=== PATIENT | female | born 1935 | race Caucasian/White ===

== ENCOUNTER 2017-09-01 11:25 | Emergency (ER) | payer BC, MEDICARE ==
[~2017-09-01 11:25] MED LIST: AMOX1TAB61 PO; CELE-20 PO; DONE5TAB7 PO; MIRT30TA3 PO; TROS20TA2 PO
[2017-09-01 12:00] VITALS: BP 159/59
[2017-09-01] MEDS ORDERED: HYDROcodone/APAP 5/325MG 1 TAB TABLET PO ONE (12:15)
--- NOTE | 2017-09-01 12:22 | PHYS DOC ---
Past Medical History Past Medical History: Dementia Additional Past Medical Histor: pt denies medical hx. poor historian Past Surgical History: Other Additional Past Surgical Histo: knee Alcohol Use: None Drug Use: None Adult General Chief Complaint Chief Complaint: HIP PAIN HPI HPI Patient is a 82 year old female with a history of dementia presents to the ED complaining of hip pain x 1 day. States the pain is in her left hip. States the pain is worse with walking. States she may have injured it standing up after going to the bathroom. Describes as sharp. Rates the pain as 7/10. States she has not taken anything for pain at home. Patient able to ambulate without assistance. Denies fall, fever, n/v, abdominal pain, laceration, chest pain, shortness of breath, dizziness or weakness. Her son at bedside provides the history. Review of Systems Review of Systems Constitutional: Denies fever or chills [] Eyes: Denies change in visual acuity, redness, or eye pain [] HENT: Denies nasal congestion or sore throat [] Respiratory: Denies cough or shortness of breath [] Cardiovascular: No additional information not addressed in HPI [] GI: Denies abdominal pain, nausea, vomiting, bloody stools or diarrhea [] : Denies dysuria or hematuria [] Musculoskeletal: Denies back pain. Complains of hip pain.[] Integument: Denies rash or skin lesions [] Neurologic: Denies headache, focal weakness or sensory changes [] Endocrine: Denies polyuria or polydipsia [] All other systems were reviewed and found to be within normal limits, except as documented in this note. Current Medications Current Medications Current Medications Medications (Trade) Dose Ordered Sig/Jeannette Start Time Stop Time Status Last Admin Dose Admin Acetaminophen/ Hydrocodone Bitart (Lortab 5/325) 1 tab 1X ONCE 09/01/17 12:15 09/01/17 12:16 DC 09/01/17 12:18 1 TAB Allergies Allergies Allergies Coded Allergies Type Severity Reaction Last Updated Verified No Known Drug Allergies 09/10/16 No Physical Exam Physical Exam Constitutional: Well developed, well nourished, no acute distress, non-toxic appearance. [] HENT: Normocephalic, atraumatic, oropharynx moist Eyes: PERRLA, EOMI, conjunctiva normal, no discharge. [] Neck: Normal range of motion, no tenderness, supple, no stridor. [] Cardiovascular:Heart rate regular rhythm, no murmur [] Lungs & Thorax: Bilateral breath sounds clear to auscultation [] Abdomen: Bowel sounds normal, soft, no tenderness, no masses, no pulsatile masses. [] Skin: Warm, dry, no erythema, no rash. [] Back: No tenderness, no CVA tenderness. [] Extremities: MILD LEFT HIP TENDERNESS. NO SWELLING OR OVERLYING SKIN CHANGES., no cyanosis, no clubbing, ROM intact, no edema. [] Neurologic: Alert and oriented X 3, normal motor function, normal sensory function, no focal deficits noted. [] Psychologic: Affect normal, judgement normal, mood normal. [] Current Patient Data Vital Signs Vital Signs Date Time Temp Pulse Resp B/P (MAP) Pulse Ox O2 Delivery O2 Flow Rate FiO2 09/01/17 12:00 98.0 62 18 98 Room Air 98.0 EKG EKG [] Radiology/Procedures Radiology/Procedures PROCEDURE: HIP LEFT 2V WITH PELVIS Left hip 2 views with one view pelvis. History: Left hip pain Single view was taken of the pelvis. The pelvis is intact without acute osseous abnormality. There is degenerative disc disease and hypertrophic change with scoliosis in the lower lumbar spine. AP and lateral views of the left hip show mild joint space narrowing. There is slight spurring on the femoral head. The pattern is consistent with a mild arthritis. Impression: 1. Mild arthritis left hip. 2. Degenerative change in the lumbar spine. [] Course & Med Decision Making Course & Med Decision Making Pertinent Labs and Imaging studies reviewed. (See chart for details) []Discussed imaging findings with patient. Patient's pain improved. Patient able to ambulate without assistance. Patient lives at home with her son. States she is feeling much better. Will discharge with analgesics. Discussed follow-up with orthopedics early this next week. Discussed reasons to return to the ED. Patient and family understand and agree with plan. Joe Disclaimer Svenon Disclaimer This electronic medical record was generated, in whole or in part, using a voice recognition dictation system. Departure Departure Impression: Primary Impression: Hip pain Additional Impression: Arthritis Disposition: 01 HOME, SELF-CARE Condition: IMPROVED Referrals: ELINOR STEVENS MD (PCP) NE GRANT MD Patient Instructions: Arthritis, Nonspecific, Hip Pain Scripts Hydrocodone/Apap 5-325 (NORCO 5-325 TABLET) 1 Each Tablet 1 TAB PO BID, #10 TAB Prov: MARK NOVA 09/01/17 Problem Qualifiers MARK NOVA Sep 01, 2017 12:22
--- NOTE | 2017-09-01 12:50 | RAD ---
Left hip 2 views with one view pelvis. History: Left hip pain Single view was taken of the pelvis. The pelvis is intact without acute osseous abnormality. There is degenerative disc disease and hypertrophic change with scoliosis in the lower lumbar spine. AP and lateral views of the left hip show mild joint space narrowing. There is slight spurring on the femoral head. The pattern is consistent with a mild arthritis. Impression: 1. Mild arthritis left hip. 2. Degenerative change in the lumbar spine.
[2017-09-01] MEDS ORDERED: HYDR-971 PO (13:00)
== END 2017-09-01 13:16 | disposition home or self-care (01) ==
LOC: ER 11:25
DX: M16.12 Unilateral primary osteoarthritis, left hip (principal); F03.90 Unspecified dementia, unspecified severity, without behavioral disturbance, psychotic disturbance, mood disturbance, and anxiety
CPT/HCPCS: 73502; 99284

== ENCOUNTER → 2017-10-24 | Outpatient (CLI) | payer BC ==
[2017-10-24] MEDS: IOHEXOL 300 MG/ML 100ML VIAL. IV ×2 (13:31)
[2017-10-24 13:49] LABS: ISTAT CREATININE 1.3 mg/dL (0.6-1.1)
== END | disposition home or self-care (01) ==
LOC: KCIC CT 12:50
DX: K11.5 Sialolithiasis (principal); M26.89 Other dentofacial anomalies; E04.1 Nontoxic single thyroid nodule
CPT/HCPCS: 70491; 82565; Q9967

== ENCOUNTER → 2017-11-11 | Day surgery (SDC) | payer BC ==
[~2017-11-11] MED LIST changes: -AMOX1TAB61 PO; -CELE-20 PO; +DEXAMETHASONE SOD PHOS 20 MG/5 ML VIAL.; -DONE5TAB7 PO; +EPINEPHrine VIAL 30 MG/30 ML VIAL; +HYDROmorphone 2 MG/ML VIAL IV; +LIDOCAINE 1% PF 2 ML VIAL. ID; +LIDOCAINE 1%/EPI 1:100,000 20 ML VIAL.; +LIDOCAINE 2% PF Vial for OR 5 ML VIAL.; -MIRT30TA3 PO; +MORPHINE SULFATE 2 MG/ML DISP.SYRIN. IV; +ONDANSETRON PF 4 MG/2 ML VIAL.; +ONDANSETRON PF 4 MG/2 ML VIAL. IV; +PROCHLORPERAZINE 10 MG/2 ML VIAL. IV; +PROPOFOL 0 ML IV; +SEVOFLURANE > 120 MINUTES. IH; +SUCCINYLCHOLINE 200 MG/10 ML VIAL.; -TROS20TA2 PO; +fentaNYL PF VIAL 100 MCG/2 ML VIAL; +fentaNYL PF VIAL 100 MCG/2 ML VIAL IV
[2017-11-11] MEDS: IV RINGERS,LACTATED 1000ML 1,000 ML IV (13:43)
== END ==
LOC: SURG 12:47
DX: R53.83 Other fatigue (principal); Z53.8 Procedure and treatment not carried out for other reasons
CPT/HCPCS: J0171; J0330; J0690; J1100; J2405; J2704; J3010; J3490

== ENCOUNTER 2020-09-24 16:57 | Emergency (ER) | payer BC ==
[~2020-09-24] VITALS: Ht 167.6 cm; Wt 120.0 kg
[~2020-09-24 16:57] MED LIST changes: +AMOX1TAB61 PO; +CALC-627 PO; +CELE-20 PO; -DEXAMETHASONE SOD PHOS 20 MG/5 ML VIAL.; +DONE5TAB7 PO; -EPINEPHrine VIAL 30 MG/30 ML VIAL; +ERGO500027 PO; +HYDR-3164 PO; -HYDROmorphone 2 MG/ML VIAL IV; +LACT20SO PO; -LIDOCAINE 1% PF 2 ML VIAL. ID; -LIDOCAINE 1%/EPI 1:100,000 20 ML VIAL.; -LIDOCAINE 2% PF Vial for OR 5 ML VIAL.; +MEMA10TA PO; +MIRT-8 PO; -MORPHINE SULFATE 2 MG/ML DISP.SYRIN. IV; -ONDANSETRON PF 4 MG/2 ML VIAL.; -ONDANSETRON PF 4 MG/2 ML VIAL. IV; +OXYB10TA26 PO; -PROCHLORPERAZINE 10 MG/2 ML VIAL. IV; -PROPOFOL 0 ML IV; +PSYL3.4P PO; +QUET25TA5 PO; -SEVOFLURANE > 120 MINUTES. IH; -SUCCINYLCHOLINE 200 MG/10 ML VIAL.; +TROS20TA2 PO; -fentaNYL PF VIAL 100 MCG/2 ML VIAL; -fentaNYL PF VIAL 100 MCG/2 ML VIAL IV
[2020-09-24 21:18] LABS: BASO # 0.1 x10^3/uL (0.0-0.2); BASO % 1 % (0-3); EOS # 0.5 x10^3/uL (0.0-0.7); EOS % 7 % (0-3); HEMATOCRIT 41.9 % (36.0-47.0); LYMPH % 27 % (24-48); MEAN CORPUSCULAR HEMOGLOBIN 31 pg (25-35); MEAN CORPUSCULAR HGB CONC 34 g/dL (31-37); MEAN CORPUSCULAR VOLUME 94 fL (79-100); MONO # 0.5 x10^3/uL (0.0-1.1); MONO % 6 % (0-9); NEUT # 4.5 x10^3/uL (1.8-7.7); NEUT % 60 % (31-73); PLATELET COUNT 159 x10^3/uL (140-400); RED BLOOD COUNT 4.49 x10^6/uL (3.50-5.40); RED CELL DISTRIBUTION WIDTH 13.9 % (11.5-14.5); WHITE BLOOD COUNT 7.6 x10^3/uL (4.0-11.0)
--- NOTE | 2020-09-24 21:19 | PHYS DOC ---
Past Medical History Past Medical History: Constipation, COPD, Dementia Additional Past Medical Histor: pt denies medical hx. poor historian Past Surgical History: Knee Replacement, Tonsillectomy, Other Additional Past Surgical Histo: SALIVARY GLAND Smoking Status: Former Smoker Alcohol Use: None Drug Use: None General Adult EDM: Chief Complaint: CONSTIPATION HPI: HPI: Patient is a 85 year old female past medical history dementia presents for evaluation of back pain. History obtained from the patient and her daught er-in-law. Patient does have a history of dementia. Daughter states patient has been been complaining of bilateral lower back pain for approximately 1 week. [id number] states pain primarily after attempting to have a bowel movement. [id number] states 1 year ago similar symptoms. Patient is alert but confused-- baseline. She ambulated into her ER room with a normal gait. Review of Systems: Review of Systems: Constitutional: Denies fever or chills. [] Eyes: Denies change in visual acuity. [] HENT: Denies nasal congestion or sore throat. [] Respiratory: Denies cough or shortness of breath. [] Cardiovascular: Denies chest pain or edema. [] GI: Denies abdominal pain, nausea, vomiting, bloody stools or diarrhea. [Positive constipation] : Denies dysuria. [] Musculoskeletal: Denies or joint pain. [Positive back pain] Integument: Denies rash. [] Neurologic: Denies headache, focal weakness or sensory changes. [] Endocrine: Denies polyuria or polydipsia. [] Lymphatic: Denies swollen glands. [] Psychiatric: Denies depression or anxiety. [] Heart Score: Risk Factors: Risk Factors: DM, Current or recent (<one month) smoker, HTN, HLP, family history of CAD, obesity. Risk Scores: Score 0 - 3: 2.5% MACE over next 6 weeks - Discharge Home Score 4 - 6: 20.3% MACE over next 6 weeks - Admit for Clinical Observation Score 7 - 10: 72.7% MACE over next 6 weeks - Early Invasive Strategies Allergies: Allergies: Allergies Coded Allergies Type Severity Reaction Last Updated Verified No Known Drug Allergies 11/11/17 No Physical Exam: PE: Constitutional: Well developed, well nourished, no acute distress, non-toxic appearance. [] HENT: Normocephalic, atraumatic, bilateral external ears normal, oropharynx moist, no oral exudates, nose normal. [] Eyes: PERRLA, EOMI, conjunctiva normal, no discharge. [] Neck: Normal range of motion, no tenderness, supple, no stridor. [] Cardiovascular:Heart rate regular rhythm, no murmur [] Lungs & Thorax: Bilateral breath sounds clear to auscultation [] Abdomen: Bowel sounds normal, soft, no tenderness, no masses, no pulsatile masses. [] Skin: Warm, dry, no erythema, no rash. [] Back: No tenderness, no CVA tenderness. [] Extremities: No tenderness, no cyanosis, no clubbing, ROM intact, no edema. [] Neurologic: Alert and oriented X 3, normal motor function, normal sensory function, no focal deficits noted. [] Psychologic: Affect normal, judgement normal, mood normal. [] Current Patient Data: Vital Signs: Vital Signs Date Time Temp Pulse Resp B/P (MAP) Pulse Ox O2 Delivery O2 Flow Rate FiO2 09/24/20 19:02 98.8 76 14 95 Room Air 98.8 EKG: EKG: [] Radiology/Procedures: Radiology/Procedures: [] Impression: FINDINGS: Air and stool are noted throughout the colon to level the rectum in a nonobstructive bowel gas pattern. Diffuse osteopenia. No suspicious masses or calcifications. Visualized osseous structures are unremarkable. Joint spaces are well- maintained. IMPRESSION: Nonobstructive bowel gas pattern. Course & Med Decision Making: Course & Med Decision Making Pertinent Labs and Imaging studies reviewed. (See chart for details) [] Patient was evaluated for chief complaint. Work-up consisted of laboratory analysis and radiologic imaging. Air and stool throughout the colon nonobstructive bowel gas. [id number] states patient is most to be on lactulose daily but she only doses her mother every few days. Advised to continue lactulose as prescribed. Dragon Disclaimer: Dragon Disclaimer: This electronic medical record was generated, in whole or in part, using a voice recognition dictation system. Departure Departure Impression: Primary Impression: Constipation Additional Impression: Back pain Disposition: 01 DC HOME SELF CARE/HOMELESS Condition: STABLE Referrals: ELINOR STEVENS MD (PCP) Patient Instructions: Abdominal Pain, Back Pain, Adult, Constipation, Adult KELLEN MAI DO Sep 24, 2020 21:19
[2020-09-24 21:26] LABS: CALCIUM 9.7 mg/dL (8.5-10.1); CREATININE 1.3 mg/dL (0.6-1.0); GFR 38.9; POTASSIUM 4.4 mmol/L (3.5-5.1)
[2020-09-24 21:32] LABS: ALBUMIN 3.6 g/dL (3.4-5.0); ALBUMIN/GLOBULIN RATIO 1.1 (1.0-1.7); TOTAL BILIRUBIN 0.3 mg/dL (0.2-1.0); TOTAL PROTEIN 6.9 g/dL (6.4-8.2)
--- NOTE | 2020-09-24 22:13 | RAD ---
Exam: Abdomen 2 view INDICATION: Abdominal pain, constipation TECHNIQUE: Upright and supine views of the abdomen Comparisons: None FINDINGS: Air and stool are noted throughout the colon to level the rectum in a nonobstructive bowel gas patter n. Diffuse osteopenia. No suspicious masses or calcifications. Visualized osseous structures are unremarkable. Joint spaces are well-maintained. IMPRESSION: Nonobstructive bowel gas pattern. Electronically signed by: Licha Hardy MD (09/24/2020 10:11 PM) [facility]
[2020-09-24 22:54] LABS: BILIRUBIN,URINE NEGATIVE (NEG); CLARITY,URINE CLEAR; COLOR,URINE YELLOW; NITRITE,URINE NEGATIVE (NEG); PROTEIN,URINE NEGATIVE (NEG-TRACE); UROBILINOGEN,URINE 0.2 mg/dL (0.2 mg/dL)
[2020-09-24 23:00] VITALS: BP 141/58
[2020-09-24] MEDS ORDERED: IV NORMAL SALINE 1000ML BAG 1,000 ML IV ONE (23:00)
[2020-09-24 23:26] LABS: BACTERIA,URINE MOD /HPF (0-FEW)
== END 2020-09-24 23:42 | disposition home or self-care (01) ==
LOC: ER 16:57
DX: K59.00 Constipation, unspecified (principal); M54.5 Low back pain; J44.9 Chronic obstructive pulmonary disease, unspecified; F03.90 Unspecified dementia, unspecified severity, without behavioral disturbance, psychotic disturbance, mood disturbance, and anxiety; Z87.891 Personal history of nicotine dependence
CPT/HCPCS: 36415; 74021; 80053; 81001; 85025; 96360; 99285; J7030